=== PATIENT | female | born 1985 | race Caucasian/White ===

== ENCOUNTER → 2017-01-17 | Outpatient (CLI) | payer OTHER ==
--- NOTE | 2017-01-17 17:15 | US ---
EXAMINATION TYPE: US abdomen complete DATE OF EXAM: 01/17/2017 COMPARISON: Previous study dated 11/10/2015. CLINICAL HISTORY: I74.4 AAA, N92.0 Excessive menstruation. Epigastric pain, patient states aorta was dilated on a prior CT EXAM MEASUREMENTS: Liver Length: 17.3 cm Gallbladder Wall: 0.2 cm CBD: 0.5 cm Spleen: 9.6 cm Right Kidney: 10.9 x 3.5 x 4.1 cm Left Kidney: 10.8 x 5.2 x 4.5 cm Pancreas: visualized portions appear wnl Liver: wnl Gallbladder: no evidence of stones Evidence for sonographic Rinaldi's sign: no CBD: wnl Spleen: wnl Right Kidney: wnl Left Kidney: wnl Upper IVC: wnl Abd Aorta: wnl Limited views of the pancreas are normal. The liver is upper limits of normal in size without biliary dilatation. The gallbladder is unremarkable without evidence of cholelithiasis. The gallbladder wall measures 2 m m. The distal common hepatic duct measures 5 mm. The spleen is normal in size. Both kidneys are normal. Visualized portions of aorta and IVC are normal. IMPRESSION: NORMAL ABDOMINAL ULTRASOUND.
--- NOTE | 2017-01-17 17:16 | US ---
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 Menses consist of a brown/tar like materia l x 6 months. History of endometrial ablation and TECHNIQUE: Transabdominal (TA) Date of LMP: 2 weeks ago EXAM MEASUREMENTS: Uterus: 8.3 x 3.7 x 4.6 cm Endometrial Stripe: 0.6 cm Right Ovary: 2.8 x 2.0 x 2.1 cm Left Ovary: 2.5 x 2.1 x 2.4 cm 1. Uterus: Anteverted heterogeneous 2. Endometrium: appears wnl 3. Right Ovary: dominant follicle = 1.3 x 1.3 x 1.9cm 4. Left Ovary: follicles noted 5. Bilateral Adnexa: wnl 6. Posterior cul-de-sac: wnl The uterus is heterogenous. This may reflect adenomyosis. There is a simple appearing 1.9 cm right ovarian cyst. No free fluid is seen. IMPRESSION: 1. HETEROGENOUS UTERUS MAY REFLECT ADENOMYOSIS. 2. SIMPLE APPEARING RIGHT OVARIAN CYST. THIS LIKELY REPRESENTS A FOLLICLE.
== END | disposition home or self-care (01) ==
LOC: RADUSWWP 15:27
PROVIDERS: ATTEND Family Medicine
DX: N83.291 Other ovarian cyst, right side (principal); N85.8 Other specified noninflammatory disorders of uterus; Z88.2 Allergy status to sulfonamides; Z88.8 Allergy status to other drugs, medicaments and biological substances; Z88.1 Allergy status to other antibiotic agents
CPT/HCPCS: 76700; 76856

== ENCOUNTER 2017-09-19 16:21 | Emergency (ER) | payer OTHER ==
[2017-09-19 16:38] VITALS: BP 133/65; PULSE 88; RESP 16; TEMP 98.2
[2017-09-19] MEDS ORDERED: HYDROmorphone 4 MG/ML 1 ML SYRINGE IM STA (16:52)
[2017-09-19] MEDS ORDERED: HYDROmorphone 2 MG/ML 1 ML SYRINGE IM STA (17:02)
--- NOTE | 2017-09-19 17:02 | ED ---
General Adult HPI - General Chief complaint: Back Pain/Injury Stated complaint: Back Pain Time Seen by Provider: 09/19/17 16:39 Source: patient, RN notes reviewed Mode of arrival: wheelchair Limitations: no limitations - History of Present Illness Initial comments: 32 yo female presents to the ER with cc of flare up of her chronic back pain. She states that she had an injection in her back and she states the pain has flared up. Patient states exactly like her chronic back pain. She is out of her narcosis because the doctor started injection of her car it did not. She states she has some constipation from her history of use of narcotics. She denies a loss by bladder functioning saddle anesthesia. She denies any nausea vomiting. She states just needs something to help with the pain until she can follow-up with her doctor. She states she is not currently having any other symptoms at this time. Patient denies any recent fever, chills, shortness of breath, chest pain, abdominal pain, nausea vomiting, numbness or tingling, dysuria or hematuria, constipation or diarrhea, headaches or visual changes, or any other current symptoms. - Related Data Home Medications Medication Instructions Recorded Confirmed Cyclobenzaprine [Flexeril] 10 mg PO TID 08/19/14 05/14/16 DULoxetine HCL [Cymbalta] 120 mg PO BID 08/19/14 05/14/16 Gabapentin [Neurontin] 300 mg PO TID 08/19/14 05/14/16 QUEtiapine [SEROquel] 100 mg PO HS 08/19/14 05/14/16 Previous Rx's Medication Instructions Recorded ALPRAZolam [Xanax] 0.5 mg PO Q8HR PRN #10 tablet 11/10/15 QUEtiapine [SEROquel] 100 mg PO HS #14 tablet 11/10/15 Famotidine [Pepcid] 20 mg PO BID #20 tablet 05/14/16 Hydrocortisone Cream 1 applic TOPICAL TID #1 cream..g. 05/14/16 [Hydrocortisone 1% Cream] predniSONE 40 mg PO DAILY 5 Days tab 05/14/16 Hydrocodone/Acetaminophen [[place] 1 each PO Q6HR PRN #20 tab 09/19/17 5-325] Allergies Allergy/AdvReac Type Severity Reaction Status Date / Time cefprozil [From Cefzil] Allergy Anaphylaxis Verified 09/19/17 16:38 nitrofurantoin Allergy Rash/Hives Verified 09/19/17 16:38 [From Macrobid] nitrofurantoin Allergy Rash/Hives Verified 09/19/17 16:38 macrocrystalline [From Macrobid] shellfish derived [Shellfish] Allergy Anaphylaxis Verified 09/19/17 16:38 sulfamethoxazole Allergy Rash/Hives Verified 09/19/17 16:38 [From Bactrim] trimethoprim [From Bactrim] Allergy Rash/Hives Verified 09/19/17 16:38 metoclopramide HCl AdvReac Unknown Verified 09/19/17 16:38 [From Reglan] prochlorperazine edisylate AdvReac Unknown Verified 09/19/17 16:38 [From Compazine] prochlorperazine maleate AdvReac Unknown Verified 09/19/17 16:38 [From Compazine] Review of Systems ROS Statement: Those systems with pertinent positive or pertinent negative responses have been documented in the HPI. ROS Other: All systems not noted in ROS Statement are negative. Past Medical History Past Medical History: Asthma, GERD/Reflux Additional Past Medical History / Comment(s): stomach ulcer History of Any Multi-Drug Resistant Organisms: None Reported Past Surgical History: Section, Cholecystectomy Additional Past Surgical History / Comment(s): endometrial ablation, breast augmentation, abdominalplasty,. hx: back pain and stomach ulcers, endometrosis Past Psychological History: Anxiety, Depression Smoking Status: Current every day smoker Past Alcohol Use History: Occasional Past Drug Use History: None Reported General Exam Limitations: no limitations General appearance: alert, in no apparent distress ENT exam: Present: normal exam, mucous membranes moist Neck exam: Present: normal inspection. Absent: tenderness, meningismus, lymphadenopathy Respiratory exam: Present: normal lung sounds bilaterally. Absent: respiratory distress, wheezes, rales, rhonchi, stridor Cardiovascular Exam: Present: regular rate, normal rhythm, normal heart sounds. Absent: systolic murmur, diastolic murmur, rubs, gallop, clicks Extremities exam: Present: normal inspection, full ROM, normal capillary refill. Absent: tenderness, pedal edema, joint swelling, calf tenderness Back exam: Present: normal inspection, full ROM, tenderness (Over the injection site in the lower lumbar area). Absent: muscle spasm, paraspinal tenderness, vertebral tenderness Neurological exam: Present: alert, oriented X3 Psychiatric exam: Present: normal affect, normal mood Skin exam: Present: warm, dry, intact, normal color. Absent: rash Course Vital Signs 09/19/17 16:35 Temperature 98.2 F Pulse Rate 88 Respiratory 16 Rate Blood Pressure 133/65 O2 Sat by Pulse 98 Oximetry Medical Decision Making - Medical Decision Making 32-year-old female presents to the emergency department with a chief complaint of flareup of chronic back pain that was not improving with her ejection. This time we will give her pain medication for home. We did discuss close follow-up with her doctor we discussed return parameters all questions. Patient [facility] management plan. All questions have been answered. They will be discharged. Disposition Clinical Impression: Chronic back pain Disposition: HOME SELF-CARE Condition: Stable Instructions: Chronic Back Pain (ED) Additional Instructions: Please use medication as discussed. Please follow up with family doctor if symptoms have not improved over the next two days. Please return to the emergency room if your symptoms increase or worsen or for any other concerns. Prescriptions: Hydrocodone/Acetaminophen [Durand 5-325] 1 each PO Q6HR PRN #20 tab PRN Reason: Pain Referrals: Iban Mathews DO [Primary Care Provider] - 1-2 days Time of Disposition: 17:01
== END 2017-09-19 17:34 | disposition home or self-care (01) ==
LOC: EC 16:21
DX: G89.29 Other chronic pain (principal); M54.9 Dorsalgia, unspecified; F32.9 Major depressive disorder, single episode, unspecified; F41.9 Anxiety disorder, unspecified; F17.200 Nicotine dependence, unspecified, uncomplicated; Z79.899 Other long term (current) drug therapy; Z88.2 Allergy status to sulfonamides; Z88.1 Allergy status to other antibiotic agents; Z91.013 Allergy to seafood; Z88.8 Allergy status to other drugs, medicaments and biological substances; Z53.9 Procedure and treatment not carried out, unspecified reason
CPT/HCPCS: 99283; 96372; J1170

== ENCOUNTER 2017-10-22 19:58 | Emergency (ER) | payer OTHER ==
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
[2017-10-22] MEDS ORDERED: HYDROcodone/APAP 7.5-325MG 1 EACH TAB PO STA (21:06)
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
--- NOTE | 2017-10-22 22:16 | XR ---
EXAMINATION TYPE: XR lumbosacral spine min 4V DATE OF EXAM: 10/22/2017 COMPARISON: NONE HISTORY: Back pain TECHNIQUE: 5 views FINDINGS: Vertebra have normal spacing and alignment. Posterior elements are intact. Sacroiliac joint s appear normal. There is no evidence of a fracture. IMPRESSION: Normal lumbar spine
[2017-10-22] MEDS ORDERED: IBUPROFEN 600 MG TAB PO STA (22:25)
[2017-10-22] MEDS ORDERED: HYDROcodone/APAP 10-325MG 1 EACH TAB PO ONE (22:29)
[2017-10-22 22:46] VITALS: BP 110/70; PULSE 95; RESP 16; TEMP 98
== END 2017-10-22 22:46 | disposition home or self-care (01) ==
LOC: EC 19:58
DX: S39.012A Strain of muscle, fascia and tendon of lower back, initial encounter (principal); M54.2 Cervicalgia; R51 Headache; M25.552 Pain in left hip; F32.9 Major depressive disorder, single episode, unspecified; F41.9 Anxiety disorder, unspecified; F17.200 Nicotine dependence, unspecified, uncomplicated; Z79.891 Long term (current) use of opiate analgesic; Z79.899 Other long term (current) drug therapy; Z88.2 Allergy status to sulfonamides; Z88.1 Allergy status to other antibiotic agents; Z91.013 Allergy to seafood; Z88.8 Allergy status to other drugs, medicaments and biological substances; Y09 Assault by unspecified means; Y92.009 Unspecified place in unspecified non-institutional (private) residence as the place of occurrence of the external cause
CPT/HCPCS: 70450; 72110; 72125; 73502; 99284

== ENCOUNTER 2018-02-14 21:55 | Emergency (ER) | payer OTHER ==
[2018-02-14] MEDS ORDERED: IPRATROPIUM-ALBUTEROL 3 ML NEB INHALATION STA (22:27)
[2018-02-14] MEDS ORDERED: FAMOTIDINE 20 MG TAB PO STA (22:27)
[2018-02-14] MEDS ORDERED: DEXAMETHASONE SOD PHOSPHATE 10 MG/ML 1 ML VIAL IM STA (22:27)
[2018-02-14] MEDS ORDERED: diphenhydrAMINE 50 MG CAP PO STA (22:27)
--- NOTE | 2018-02-14 22:30 | ED ---
General Adult HPI - General Chief complaint: Allergic Reaction Stated complaint: Allergic Reaction Time Seen by Provider: 02/14/18 22:11 Source: patient, RN notes reviewed, old records reviewed Mode of arrival: ambulatory Limitations: no limitations - History of Present Illness Initial comments: 32 yo Female presents with suspected ALLERGIC reaction. Patient has history of shellfish ALLERGY. She went into a client's home with a been cooking shellfish. She immediately began to feel itchy, she noted some labored breathing and cough. She did have nausea with no vomiting. No abdominal pain. No rash noted. At the time my evaluation, she has persistent cough, no tongue or lip swelling. No respiratory distress. - Related Data Home Medications Medication Instructions Recorded Confirmed Gabapentin [Neurontin] 600 mg PO TID 10/22/17 02/14/18 Ibuprofen [Motrin Ib] 800 mg PO Q6H PRN 10/22/17 02/14/18 QUEtiapine [SEROquel] 50 mg PO HS 10/22/17 02/14/18 Topiramate [Topamax] 50 mg PO BID 10/22/17 02/14/18 Venlafaxine HCl [Effexor XR] 75 mg PO DAILY 10/22/17 02/14/18 Cetirizine HCl [Zyrtec] 10 mg PO DAILY 02/14/18 02/14/18 Previous Rx's Medication Instructions Recorded EPINEPHrine [Epipen 2-Jignesh] 0.3 mg IM ONCE PRN #1 pack 02/14/18 diphenhydrAMINE [Benadryl] 25 mg PO TID PRN #15 capsule 02/14/18 predniSONE 50 mg PO DAILY #5 tab 02/14/18 Allergies Allergy/AdvReac Type Severity Reaction Status Date / Time cefprozil [From Cefzil] Allergy Anaphylaxis Verified 02/14/18 22:27 nitrofurantoin Allergy Rash/Hives Verified 02/14/18 22:27 [From Macrobid] nitrofurantoin Allergy Rash/Hives Verified 02/14/18 22:27 macrocrystalline [From Macrobid] shellfish derived [Shellfish] Allergy Anaphylaxis Verified 02/14/18 22:27 sulfamethoxazole Allergy Rash/Hives Verified 02/14/18 22:27 [From Bactrim] trimethoprim [From Bactrim] Allergy Rash/Hives Verified 02/14/18 22:27 metoclopramide HCl AdvReac Unknown Verified 02/14/18 22:27 [From Reglan] prochlorperazine edisylate AdvReac Unknown Verified 02/14/18 22:27 [From Compazine] prochlorperazine maleate AdvReac Unknown Verified 02/14/18 22:27 [From Compazine] Review of Systems ROS Statement: Those systems with pertinent positive or pertinent negative responses have been documented in the HPI. ROS Other: All systems not noted in ROS Statement are negative. Past Medical History Past Medical History: Asthma, GERD/Reflux Additional Past Medical History / Comment(s): stomach ulcer History of Any Multi-Drug Resistant Organisms: None Reported Past Surgical History: Section, Cholecystectomy Additional Past Surgical History / Comment(s): endometrial ablation, breast augmentation, abdominalplasty,. hx: back pain and stomach ulcers, endometrosis Past Psychological History: Anxiety, Depression Smoking Status: Current every day smoker Past Alcohol Use History: Occasional Past Drug Use History: None Reported General Exam Limitations: no limitations General appearance: alert, in no apparent distress Head exam: Present: atraumatic, normocephalic Eye exam: Present: normal appearance, PERRL ENT exam: Present: normal exam Neck exam: Present: normal inspection. Absent: tenderness, meningismus Respiratory exam: Present: decreased breath sounds. Absent: respiratory distress, wheezes Cardiovascular Exam: Present: regular rate, normal rhythm GI/Abdominal exam: Present: soft. Absent: distended, tenderness, guarding Neurological exam: Present: alert, oriented X3 Psychiatric exam: Present: normal affect, normal mood Skin exam: Present: warm, dry, intact. Absent: rash, urticaria Course Vital Signs 02/14/18 02/14/18 02/14/18 22:04 22:37 22:46 Temperature 98.5 F Pulse Rate 72 72 76 Respiratory 20 Rate Blood Pressure 105/71 O2 Sat by Pulse 100 Oximetry 02/14/18 23:27 Temperature 98.7 F Pulse Rate 60 Respiratory 18 Rate Blood Pressure 105/67 O2 Sat by Pulse 100 Oximetry Medical Decision Making - Medical Decision Making 32-year-old female presenting with ALLERGIC reaction patient is given Pepcid, Benadryl, and Decadron in the emergency department. She is observed. There is no airway involvement. No wheezing on exam, there is cough associated. This does not sound bronchospastic. Patient is overall well-appearing. She will be discharged with steroids, Benadryl, and an epinephrine pen. Disposition Clinical Impression: Food allergy, Allergic reaction Disposition: HOME SELF-CARE Condition: Good Instructions: Food Allergy (ED), Anaphylaxis (ED) Prescriptions: diphenhydrAMINE [Benadryl] 25 mg PO TID PRN #15 capsule PRN Reason: Allergic Reaction EPINEPHrine [Epipen 2-Jignesh] 0.3 mg IM ONCE PRN #1 pack PRN Reason: Anaphylaxis predniSONE 50 mg PO DAILY #5 tab Is patient prescribed a controlled substance at d/c from ED?: No Referrals: Iban Mathews DO [Primary Care Provider] - 1-2 days
[2018-02-15 00:24] VITALS: BP 103/58; PULSE 61; RESP 16; TEMP 98.3
== END 2018-02-15 00:20 | disposition home or self-care (01) ==
LOC: EC 21:55
DX: T78.1XXA Other adverse food reactions, not elsewhere classified, initial encounter (principal); F41.9 Anxiety disorder, unspecified; F32.9 Major depressive disorder, single episode, unspecified; F17.200 Nicotine dependence, unspecified, uncomplicated; Z87.19 Personal history of other diseases of the digestive system; Z90.49 Acquired absence of other specified parts of digestive tract; Z98.890 Other specified postprocedural states; Z79.899 Other long term (current) drug therapy; Z88.1 Allergy status to other antibiotic agents; Z88.2 Allergy status to sulfonamides; Z88.8 Allergy status to other drugs, medicaments and biological substances; Z91.013 Allergy to seafood
CPT/HCPCS: 94640; 99284; 96372; J1100

== ENCOUNTER 2018-12-16 03:24 | Emergency (ER) | payer OTHER ==
[2018-12-16 03:36] VITALS: RESP 18
--- NOTE | 2018-12-16 04:24 | XR ---
EXAM: XR Lumbar Spine, 2 or 3 Views CLINICAL HISTORY: ITS.REASON XR Reason: Pain TECHNIQUE: Frontal and lateral views of the lumbar spine. COMPARISON: No relevant prior studies available. FINDINGS: Vertebrae: Unremarkable. No acute fracture. Normal alignment. Disc spaces: No significant narrowing. Soft tissues: Unremarkable. IMPRESSION: No acute findings.
--- NOTE | 2018-12-16 04:25 | XR ---
EXAM: XR Chest, 2 Views CLINICAL HISTORY: ITS.REASON XR Reason: Pain TECHNIQUE: Frontal and lateral views of the chest. COMPARISON: Chest x-ray 11/10/15 FINDINGS: Lungs: No consolidation or mass. Pleural space: No effusion. Heart: No cardiomegaly. Mediastinum: Unremarkable. Bones/joints: No acute findings. IMPRESSION: No acute cardiopulmonary process.
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
[2018-12-16 05:28] VITALS: BP 143/80; PULSE 72; TEMP 98
== END 2018-12-16 05:30 | disposition home or self-care (01) ==
LOC: EC 03:24
DX: S20.222A Contusion of left back wall of thorax, initial encounter (principal); S30.0XXA Contusion of lower back and pelvis, initial encounter; F41.9 Anxiety disorder, unspecified; F32.9 Major depressive disorder, single episode, unspecified; F17.200 Nicotine dependence, unspecified, uncomplicated; Z87.19 Personal history of other diseases of the digestive system; Z90.49 Acquired absence of other specified parts of digestive tract; Z98.890 Other specified postprocedural states; Z79.899 Other long term (current) drug therapy; Z88.1 Allergy status to other antibiotic agents; Z88.2 Allergy status to sulfonamides; Z88.8 Allergy status to other drugs, medicaments and biological substances; Z91.013 Allergy to seafood; Y04.8XXA Assault by other bodily force, initial encounter; Y92.009 Unspecified place in unspecified non-institutional (private) residence as the place of occurrence of the external cause; Y07.03 Male partner, perpetrator of maltreatment and neglect
CPT/HCPCS: 71046; 72100; 99284